=== PATIENT | female | born 1960 | race Caucasian/White ===

== ENCOUNTER → 2020-04-29 15:58 | Outpatient (CLI) | payer OTHER, SELFPAY ==
[2020-04-29 17:39] LABS: Alanine Aminotransferase 19 IU/L (<35); Albumin 4.3 g/dL (3.5-5.0); Albumin Globulin Ratio 1.3 (1.0-2.8); Alkaline Phosphatase 62 U/L (38-126); Aspartate Aminotransferase 25 IU/L (14-36); BUN Creatinine Ratio 24.1 (6-22); Bilirubin Total 0.8 mg/dL (0.2-1.3); Blood Urea Nitrogen 20 mg/dL (7-17); Calcium 9.3 mg/dL (8.4-10.2); Carbon Dioxide 29 mmol/L (22-32); Chloride 104 mmol/L (98-107); Estimated Glomerular Filt Rate > 60.0 mL/min (>60); Globulin 3.3 g/dL (1.7-4.1); Glucose 94 mg/dL (70-100); HEMOLYSIS < 15 (0-50); Lipase 107 U/L (23-300); Sodium 140 mmol/L (137-145); Total Protein 7.6 g/dL (6.3-8.2)
[2020-04-29 17:40] LABS: Add Manual Diff / Slide Review NO; Basophils Absolute Auto 100 /uL (0-100); Basophils Percent Auto 0.9 % (0-2); Eosinophils Absolute Auto 300 /uL (0-450); Hematocrit 41.6 % (36-46); Lymphocytes Absolute Auto 1500 /uL (1100-4500); Lymphocytes Percent Auto 23.6 % (25-40); Mean Corpuscular HGB Conc 33.6 % (30-36); Mean Corpuscular Hemoglobin 30.1 PG (26-34); Mean Corpuscular Volume 89.8 fL (80-100); Monocytes Absolute Auto 500 /uL (0-900); Monocytes Percent Auto 7.3 % (3-14); Neutrophils Absolute Auto 4100 /uL (1500-7000); Neutrophils Percent Auto 63.2 % (50-75); Platelet Count 271 X10^3/uL (150-400); Red Blood Cell Count 4.64 X10^6/uL (4.0-5.2); Red Cell Distribution Width 13.8 % (11.6-14.8); White Blood Cell Count 6.5 X10^3/uL (4.5-11.0)
[2020-04-29 18:10] LABS: Hemoglobin A1C% w Est Avg Glu 5.7 % (4.0-6.0)
[2020-04-29 18:17] LABS: TSH w/ Reflex to FT4 1.62 uIU/mL (0.47-4.68)
== END ==
PROVIDERS: PCP Family Medicine; Referring Provider Family Medicine; Visit Provider Family Medicine
DX: K31.9 Disease of stomach and duodenum, unspecified (principal); R10.13 Epigastric pain
CPT/HCPCS: 36415; 80053; 83036; 83690; 84443; 85025

== ENCOUNTER 2020-07-27 22:22 | Emergency (ER) | payer OTHER, SELFPAY ==
[2020-07-27 22:30] VITALS: BP 135/93; PULSE 91; RESP 20; O2SAT 98
--- NOTE | 2020-07-27 22:33 | DI.RAD.S_ITS ---
PROCEDURE: XR CHEST 1V INDICATIONS: chest pain TECHNIQUE: One view of the chest was acquired. COMPARISON: None. FINDINGS: Surgical changes and devices: None. Lungs and pleura: Lungs are clear. No pleural effusions or pneumothorax. Mediastinum: Mediastinal contours appear normal. Heart size is normal. Bones and chest wall: No suspicious bony lesions. Overlying soft tissues appear unremarkable. IMPRESSION: No acute disease. Dictated by: Efrain Rosenthal M.D. on 07/28/2020 at 8:24 Approved by: Efrain oRsenthal M.D. on 07/28/2020 at 8:25
[2020-07-27 22:35] VITALS: TEMP 36.5
[2020-07-27 22:36] VITALS: BP 141/97; PULSE 91; RESP 24; O2SAT 99
[2020-07-27 22:48] LABS: Add Manual Diff / Slide Review NO; Basophils Absolute Auto 200 /uL (0-100); Basophils Percent Auto 2.3 % (0-2); Eosinophils Absolute Auto 400 /uL (0-450); Eosinophils Percent Auto 4.4 % (2-4); Hematocrit 40.9 % (36-46); Hemoglobin 13.5 g/dL (12.0-16.0); Lymphocytes Absolute Auto 2000 /uL (1100-4500); Mean Corpuscular HGB Conc 33.1 % (30-36); Mean Corpuscular Hemoglobin 30.1 PG (26-34); Mean Corpuscular Volume 90.9 fL (80-100); Monocytes Absolute Auto 700 /uL (0-900); Monocytes Percent Auto 8.2 % (3-14); Neutrophils Absolute Auto 5700 /uL (1500-7000); Neutrophils Percent Auto 63.1 % (50-75); Platelet Count 293 X10^3/uL (150-400); Red Blood Cell Count 4.51 X10^6/uL (4.0-5.2); Red Cell Distribution Width 14.1 % (11.6-14.8); White Blood Cell Count 9.1 X10^3/uL (4.5-11.0)
[2020-07-27 22:54] LABS: Prothrombin Time 11.2 SECONDS (10.1-12.7)
[2020-07-27 22:56] LABS: PTT Partial Thromboplastin Tim 32 SECONDS (26.4-36.2)
[2020-07-27 22:59] LABS: Alanine Aminotransferase 19 IU/L (<35); Albumin 4.2 g/dL (3.5-5.0); Albumin Globulin Ratio 1.4 (1.0-2.8); Alkaline Phosphatase 66 U/L (38-126); Aspartate Aminotransferase 23 IU/L (14-36); Bilirubin Total 0.2 mg/dL (0.2-1.3); Blood Urea Nitrogen 30 mg/dL (7-17); Calcium 9.4 mg/dL (8.4-10.2); Carbon Dioxide 29 mmol/L (22-32); Chloride 108 mmol/L (98-107); Creatine Kinase 130 U/L (30-135); Estimated Glomerular Filt Rate 52.5 mL/min (>60); Globulin 3.1 g/dL (1.7-4.1); Glucose 83 mg/dL (70-100); HEMOLYSIS < 15 (0-50); Lipase 133 U/L (23-300); Potassium 3.8 mmol/L (3.4-5.1); Sodium 142 mmol/L (137-145); Total Protein 7.3 g/dL (6.3-8.2)
[2020-07-27 23:10] LABS: Troponin I < 0.012 ng/mL (0.01-0.034)
[2020-07-27 23:14] LABS: CKMB % Relative Index 1.1 % (1.5-5.0); Creatine Kinase MB 1.48 ng/mL (<2.37)
--- NOTE | 2020-07-27 23:15 | ED.CHESTPAIN ---
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 Apparently symptoms began in December or January of this year with increased overall tightness through her chest. She had 20 minutes episode in her barn where she became acutely dyspneic and describes it as in asthmatic attack (with no prior history of asthma or reactive airway disease). She describes 6 of her senior living cats all dying at about the same time that she began having this chest tightness as well as increasing fatigue in general malaise. She was concerned and self treated with a course of ciprofloxacin and reported feeling better for approximately 2 weeks. When the chest tightness general malaise and fatigue returned she spoke to a physician via telemedicine who hypoxia size that she may have some type of pulmonary chlamydial infection and prescribed a course of oral azithromycin. She describes little change with the azithromycin. She was seen for new visit with a primary care provider in April and discussed PTSD, general anxiety disorder but she feels did not adequately addressed her pulmonary concerns. She comes in on the late Tuesday evening knowing that the emergency room has been busy and figuring this would be a slow time and be less wait time for her to continue her workup. There was no acute exacerbation or change to her overall symptoms today. She complains of intermittent headaches, no fevers, intermittent mild cough that is nonproductive, no abdominal pain, vomiting or diarrhea. She notes that during the summer when all of the fleas were hatching she had a flea bite that got infected on her leg, there are no other skin complaints or concerns at this time. She is concerned overall that she may have some sort of zoonotic transmissible disease and is concerned that the 6 cats and the flea bites may somehow be involved with all of her symptoms. She does have any focal neurologic complaints aside from the general fatigued. Related Data Previous Rx's Medication Instructions Recorded meloxicam 15 mg tablet 15 mg PO DAILY #90 tab 05/02/20 paroxetine HCl 30 mg tablet 30 mg PO DAILY #90 tab 05/02/20 alprazolam 0.5 mg tablet 0.5 mg PO DAILY PRN #20 tab 05/06/20 zolpidem 10 mg tablet 10 mg PO BEDTIME PRN #30 tab 05/06/20 Allergies Allergy/AdvReac Type Severity Reaction Status Date / Time acetaminophen [From Percocet] AdvReac Mild N/V Verified 04/29/20 15:06 hydrocodone [From Vicodin] AdvReac Mild N/V Verified 04/29/20 15:06 oxycodone [From Percocet] AdvReac Mild N/V Verified 04/29/20 15:06 Review of Systems Review of Systems Narrative: Remainder of review of systems including constitutional, ENT, cardiovascular, respiratory, GI, , musculoskeletal, skin, neurologic and psychiatric systems reviewed and are unremarkable except as noted in HPI. Patient History Medical History Dyspepsia and disorder of function of stomach Generalized anxiety disorder Osteoarthritis Panic attacks Preventive measure PTSD (post-traumatic stress disorder) Social History Smoking Status: Former smoker Tobacco: How many years used: 33 quit status: has quit before alcohol intake: never substance use type: does not use Smoking Status: Former smoker Exam Narrative Exam Narrative: General: Healthy appearing, in no acute distress. Able to give a complete and coherent history. Well-nourished well-developed HEENT: Moist mucous membranes, normal sclera with reactive pupils, Neck: No JVD, supple Respiratory: Lungs are clear to auscultation, no wheezing no rales no rhonchi. Full and symmetrical air movement Cardiac: Regular rate and rhythm no murmurs no bruits Abdomen: Soft, nontender, good bowel tones, no flank pain Skin: Warm and dry, no rashes Neurologic: Grossly neurologically intact with no obvious asymmetries or abnormalities Extremities: No trauma, well perfused Psych: Cooperative, appropriate insight and affect Initial Vital Signs Initial Vital Signs: Vital Signs Pulse Rate 91 H 07/27/20 22:30 Respiratory Rate 20 07/27/20 22:30 Blood Pressure 135/93 H 07/27/20 22:30 Pulse Oximetry 98 07/27/20 22:30 Course Orders Ordered: ED Orders 07/27/20 22:33 XR chest 1V Stat EKG-12 Lead Stat 07/27/20 22:34 Complete Blood Count AUTO DIFF Stat Comprehensive Metabolic Panel Stat Lipase Stat Partial Thromboplastin Time Stat Prothrombin Time INR Stat Troponin & CK Cardiac Panel Stat Discontinued Medications Albuterol (Albuterol Hfa Prepack) 1 box MISC SEEINSTR ONE Stop: 07/27/20 23:32 Last Admin: 07/27/20 23:41 Dose: 1 box Documented by: PAULA Vital Signs Vital signs: Vital Signs - 8 hr 07/27/20 22:30 07/27/20 22:35 07/27/20 22:36 Temperature 97.7 F Pulse Rate 91 H 91 H Respiratory Rate 20 24 Blood Pressure 135/93 H 141/97 H Pulse Oximetry 98 99 07/27/20 23:41 07/27/20 23:58 Temperature Pulse Rate 82 80 Respiratory Rate 15 16 Blood Pressure 116/71 Pulse Oximetry 96 96 MDM - Chest Pain Medical Records Data Attestation: I reviewed the patient's medical records. Lab Data Attestation: I reviewed the patient's lab results. Result diagrams: 07/27/20 22:34 07/27/20 22:34 Labs: Lab Results 07/27/20 07/27/20 07/27/20 Range/Units 22:34 22:34 22:34 WBC 9.1 (4.5-11.0) X10^3/uL RBC 4.51 (4.0-5.2) X10^6/uL Hgb 13.5 (12.0-16.0) g/dL Hct 40.9 (36-46) % MCV 90.9 (80-100) fL MCH 30.1 (26-34) PG MCHC 33.1 (30-36) % RDW 14.1 (11.6-14.8) % Plt Count 293 (150-400) X10^3/uL Neut % (Auto) 63.1 (50-75) % Lymph % (Auto) 22.0 L (25-40) % [place] % (Auto) 8.2 (3-14) % Eos % (Auto) 4.4 H (2-4) % Baso % (Auto) 2.3 H (0-2) % Neut # (Auto) 5700 (7386-8010) /uL Lymph # (Auto) 2000 (8183-9449) /uL Florence # (Auto) 700 (0-900) /uL Eos # (Auto) 400 (0-450) /uL Baso # (Auto) 200 H (0-100) /uL PT 11.2 (10.1-12.7) SECONDS INR 1.0 (0.9-1.3) APTT 32 (26.4-36.2) SECONDS Sodium 142 (137-145) mmol/L Potassium 3.8 (3.4-5.1) mmol/L Chloride 108 H (98-107) mmol/L Carbon Dioxide 29 (22-32) mmol/L BUN 30 H (7-17) mg/dL Creatinine 1.07 H (0.52-1.04) mg/dL Estimated GFR 52.5 L (>60) mL/min BUN/Creatinine Ratio 28.0 H (6-22) Glucose 83 (70-100) mg/dL Calcium 9.4 (8.4-10.2) mg/dL Total Bilirubin 0.2 (0.2-1.3) mg/dL AST 23 (14-36) IU/L ALT 19 (<35) IU/L Alkaline Phosphatase 66 (38-126) U/L Total Creatine Kinase 130 (30-135) U/L CK-MB (CK-2) 1.48 (<2.37) ng/mL CK-MB (CK-2) Rel Index 1.1 L (1.5-5.0) % Troponin I < 0.012 (0.01-0.034) ng/mL Total Protein 7.3 (6.3-8.2) g/dL Albumin 4.2 (3.5-5.0) g/dL Globulin 3.1 (1.7-4.1) g/dL Albumin/Globulin Ratio 1.4 (1.0-2.8) Lipase 133 (23-300) U/L Imaging Data Chest x-ray: Attestation: I personally reviewed and interpreted this imaging study as follows: My Impression: Entirely benign. Radiologist's Impression: No acute disease in the chest Lucas Pelayo MD ECG Data Attestation: I personally reviewed and interpreted this ECG as follows: Interpretation: Sinus rhythm at a rate of 87 Normal intervals, normal axis No acute ischemic changes MDM Narrative Medical decision making narrative: Labs are unremarkable as is chest x-ray and EKG. 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 She is wondering what additional testing can be done for that. I am wondering if she may simply be developing mild airway disease. Have asked that she return to her primary care physician I believe pulmonary function testing to sort through some of her questions may be helpful and she certainly is quite interested in a children's tutor nursery consult to see if there is evidence of any other type of chronic pulmonary infection. At this point certainly nothing that is life-threatening, no evidence of obvious bacterial infection or pneumonia, no coronary syndrome or other acute life-threatening issues. Discharge Plan Departure Patient Disposition: Home Clinical Impression: Dyspnea Qualifiers: Dyspnea type: unspecified Qualified Code(s): R06.00 - Dyspnea, unspecified Instructions: DI for Asthma -- Adult Activity Restrictions/Additional Instructions: Thank you for coming in today I am pleased that I did not find any acute like threatening issues or obvious infections. I am wondering if you are developing a bit of reactive airway issues to explain the overall tightness that you have been experiencing. Please use the spacer and albuterol inhaler with 2 puffs the next time you developed this chest tightness and see if it makes a difference for you. Please schedule appointment with Dr. Pacheco to talk about the chest tightness, consider pulmonary function testing and talk about need for referral to children's tutor nursery. Prescriptions: No Action meloxicam 15 mg tablet 15 mg PO DAILY Qty: 90 RF: 1 paroxetine HCl 30 mg tablet 30 mg PO DAILY Qty: 90 RF: 1 alprazolam 0.5 mg tablet 0.5 mg PO DAILY PRN (Reason: anxiety) Qty: 20 RF: 0 zolpidem 10 mg tablet 10 mg PO BEDTIME PRN (Reason: sleep) Qty: 30 RF: 0 Referrals: Osmar Pacheco, [Primary Care Provider] -
[2020-07-27 23:41] VITALS: PULSE 82; RESP 15; O2SAT 96
[2020-07-27] MEDS: ALBUTEROL HFA PREPACK 1 BOX MISC (23:41)
[2020-07-27 23:58] VITALS: BP 116/71; PULSE 80; RESP 16; O2SAT 96
== END 2020-07-27 23:58 | disposition home or self-care (01) ==
PROVIDERS: Emergency Provider Emergency Medicine; PCP Family Medicine
DX: R06.00 Dyspnea, unspecified (principal); R07.9 Chest pain, unspecified; R51.9 Headache, unspecified; R05 Cough
CPT/HCPCS: 36415; 71045; 80053; 82550; 82553; 83690; 84484; 85025; 85610; 85730; 93005; 94640; 99283; 99284

== ENCOUNTER → 2021-08-04 14:45 | Outpatient (CLI) | payer OTHER, SELFPAY ==
--- NOTE | 2021-08-04 14:46 | DI.MG.S_ITS ---
BILATERAL DIGITAL SCREENING MAMMOGRAM 3D/2D WITH CAD: 08/04/2021 CLINICAL: Baseline exam. Routine screening. No prior exams were available for comparison. There are scattered fibroglandular elements in both breasts. Current study was also evaluated with a Computer Aided Detection (CAD) system. No significant masses, calcifications, or other findings are seen in either breast. IMPRESSION: NEGATIVE There is no mammographic evidence of malignancy. A 1 year screening mammogram is recommended. This exam was interpreted at Station ID: [id number]. NOTE: For mammograms, a report in lay terms will be sent to the patient. Approximately 15% of breast malignancies will not be visualized mammographically. In the management of a palpable breast mass, a negative mammogram must not discourage biopsy of a clinically suspicious lesion. Electronically Signed By: Dawit holden/anita:08/04/2021 16:25:37 letter sent: Normal Exam ACR BI-RADS Category 1: Negative [id number]
== END ==
PROVIDERS: PCP Family Medicine; Referring Provider Family Medicine; Visit Provider Family Medicine
DX: Z12.31 Encounter for screening mammogram for malignant neoplasm of breast (principal)
CPT/HCPCS: 77063; 77067

== ENCOUNTER → 2021-11-03 13:21 | Outpatient (CLI) | payer OTHER, SELFPAY ==
[2021-11-03 16:36] LABS: Alanine Aminotransferase 18 IU/L (<35); Albumin 4.1 g/dL (3.5-5.0); Albumin Globulin Ratio 1.6 (1.0-2.8); Alkaline Phosphatase 59 U/L (38-126); Aspartate Aminotransferase 23 IU/L (14-36); BUN Creatinine Ratio 22.3 (6-22); Bilirubin Total 0.6 mg/dL (0.2-1.3); Blood Urea Nitrogen 21 mg/dL (7-17); Calcium 9.3 mg/dL (8.4-10.2); Carbon Dioxide 26 mmol/L (22-32); Chloride 104 mmol/L (98-107); Estimated Glomerular Filt Rate > 60 mL/min (>60); Globulin 2.6 g/dL (1.7-4.1); Glucose 93 mg/dL (80-110); HEMOLYSIS < 15 (0-50); Potassium 4.2 mmol/L (3.4-5.1); Sodium 141 mmol/L (137-145); Total Protein 6.7 g/dL (6.3-8.2)
== END ==
PROVIDERS: PCP Family Medicine; Referring Provider Family Medicine; Visit Provider Family Medicine
DX: I10 Essential (primary) hypertension (principal)
CPT/HCPCS: 36415; 80053

== ENCOUNTER → 2022-12-07 15:21 | Outpatient (CLI) | payer OTHER, SELFPAY ==
[2022-12-07 15:40] LABS: Appearance Urine UA CLEAR; Bilirubin Urine UA NEGATIVE (NEGATIVE); Color Urine UA YELLOW; Glucose Urine UA NEGATIVE (Negative); Ketones Urine UA NEGATIVE (NEGATIVE); Leukocyte Esterase Urine UA NEGATIVE (NEGATIVE); Nitrite Urine UA NEGATIVE (Negative); Occult Blood Urine UA TRACE-INTACT (Negative); Protein Urine UA NEGATIVE (Negative); Specific Gravity Urine UA >=1.030 (1.000-1.035); Urobilinogen Urine UA 0.2 E.U./dL (0.2)
[2022-12-07 15:43] LABS: pH Urine UA 5.5 (4.5-8.0)
[2022-12-07 15:50] LABS: Bacteria Urine Occasional (0-1); Culture Indicated Urine Cult Not Indicated; RBC Urine 1-5/HPF (0-5/HPF); Squamous Epithelial Cell Urine 1-5 /HPF (0-5/HPF); WBC Urine 0-1/HPF (0-5/HPF)
[2022-12-07 16:03] LABS: Add Manual Diff / Slide Review NO; Basophils Absolute Auto 100 /uL (0-100); Eosinophils Absolute Auto 400 /uL (0-450); Eosinophils Percent Auto 4.2 % (2-4); Hematocrit 41.3 % (36-46); Hemoglobin 13.9 g/dL (12.0-16.0); Lymphocytes Absolute Auto 2100 /uL (1100-4500); Lymphocytes Percent Auto 24.9 % (25-40); Mean Corpuscular HGB Conc 33.6 % (30-36); Mean Corpuscular Hemoglobin 30.4 PG (26-34); Mean Corpuscular Volume 90.7 fL (80-100); Monocytes Absolute Auto 600 /uL (0-900); Monocytes Percent Auto 6.9 % (3-14); Neutrophils Absolute Auto 5400 /uL (1500-7000); Platelet Count 313 X10^3/uL (150-400); Red Blood Cell Count 4.56 X10^6/uL (4.0-5.2); Red Cell Distribution Width 13.7 % (11.6-14.8); White Blood Cell Count 8.6 X10^3/uL (4.5-11.0)
[2022-12-07 16:18] LABS: Alanine Aminotransferase 22 IU/L (<35); Albumin 4.2 g/dL (3.5-5.0); Albumin Globulin Ratio 1.5 (1.0-2.8); Alkaline Phosphatase 66 U/L (38-126); Aspartate Aminotransferase 22 IU/L (14-36); BUN Creatinine Ratio 26.4 (6-22); Bilirubin Total 0.4 mg/dL (0.2-1.3); Blood Urea Nitrogen 23 mg/dL (7-17); Calcium 9.3 mg/dL (8.4-10.2); Carbon Dioxide 26 mmol/L (22-32); Chloride 103 mmol/L (98-107); Estimated Glomerular Filt Rate > 60 mL/min (>60); Globulin 2.8 g/dL (1.7-4.1); Glucose 110 mg/dL (80-110); HEMOLYSIS < 15 (0-50); Potassium 3.9 mmol/L (3.4-5.1); Sodium 138 mmol/L (137-145)
== END ==
PROVIDERS: PCP Family Medicine; Referring Provider Family Medicine; Visit Provider Family Medicine
DX: N23 Unspecified renal colic (principal); R10.9 Unspecified abdominal pain
CPT/HCPCS: 36415; 80053; 81001; 85025

== ENCOUNTER → 2022-12-14 07:21 | Outpatient (CLI) | payer OTHER, SELFPAY ==
--- NOTE | 2022-12-14 07:23 | DI.US.S_ITS ---
PROCEDURE: US RENAL COMPLETE INDICATIONS: RIGHT FLANK PAIN TECHNIQUE: Real-time scanning was performed of the kidneys and bladder, with image documentation. COMPARISON: None. FINDINGS: Kidneys: Kidneys are normal in size. Right kidney measures 11.0 cm long; left kidney measures 9.6 cm long. Right renal cortical thickness is 1.6 cm; left renal cortical thickness is 1.3 cm. Renal cortical echotexture is normal. Slight prominence of upper calyx of right kidney is seen. No abnormal distension of renal pelvis. No left-sided hydronephrosis or nephrolithiasis. No suspicious solid mass lesions. Bladder: Pre-void bladder volume is 115 mL. Post-void residual is 0 mL. Pre-void images demonstrate no intraluminal masses or stones. On pre-void images, bilateral ureteral jets are noted with color Doppler interrogation. (Of note, ureteral jets may not be detectable in up to 25% of cases due to insufficient differences in specific gravity between ureteral and bladder urine). Miscellaneous: No free pelvic fluid. IMPRESSION: 1. Slight prominence of upper calyx of right renal collecting system and may represent a peripelvic cyst. No definite hydronephrosis or nephrolithiasis. No solid appearing renal lesion. Clinical and sonographic follow-up is recommended. 2. Normal appearing urinary bladder. Dictated by: René Gomez M.D. on 12/14/2022 at 10:22 Approved by: René Gomez M.D. on 12/14/2022 at 10:27
== END ==
PROVIDERS: PCP Family Medicine; Referring Provider Family Medicine; Visit Provider Family Medicine
DX: N23 Unspecified renal colic (principal); R10.9 Unspecified abdominal pain
CPT/HCPCS: 76770

== ENCOUNTER → 2023-03-17 12:59 | Outpatient (CLI) | payer OTHER, SELFPAY ==
--- NOTE | 2023-03-17 12:59 | DI.CT.S_ITS ---
PROCEDURE: CT IVP A/P W/WO INDICATIONS: Microscopic hematuria and tobacco exposure, right flank pain TECHNIQUE: Optional 5 mm thick noncontrast images acquired from the diaphragm to the symphysis pubis. After the administration of intravenous contrast, 5 mm thick images acquired from the diaphragm to the symphysis pubis after a 10-minute delay. 2 mm thick coronal and sagittal reformats were then performed of the kidneys and ureters. For radiation dose reduction, the following was used: automated exposure control, adjustment of mA and/or kV according to patient size. COMPARISON: [facility], , RENAL COMPLETE, 12/14/2022, 7:43. FINDINGS: Image quality: Excellent. Lung bases: Lingular atelectasis. Heart size is normal. Small hiatal hernia. Urinary system: Both kidneys are normal in size, without hydronephrosis or nephrolithiasis on pre-contrast images. No perinephric fat stranding. There is normal bilateral renal enhancement. Renal calyces appear normal in morphology when filled with contrast. Opacified portions of both ureters demonstrate normal caliber. Bladder wall thickness is normal. No calcified bladder stones. Other solid organs: Liver is normal in size and enhancement. Gallbladder is contracted. No gallstones. Biliary system is non dilated. Pancreas enhances normally. Spleen is normal in size and enhancement. No adrenal nodules. Peritoneum and bowel: Bowel loops demonstrate normal wall thickness and caliber. No free fluid or air. There are numerous colonic diverticula. There is mild colonic wall thickening and pericolonic stranding in sigmoid colon consistent with acute diverticulitis. Question mild thickening of rectum. Nodes and vessels: No retroperitoneal or mesenteric adenopathy by size criteria. Aorta and inferior vena cava are normal in size. Abdominal wall: No ventral hernias. Pelvis: No pathologic free pelvic fluid. No inguinal hernias or adenopathy. Bones: No suspicious bony lesions. No vertebral body compression fractures. IMPRESSION: 1. A cause for microscopic hematuria is not identified. No renal or uroepithelial masses. No urinary stones or hydronephrosis. 2. Diverticulosis. There is mild acute sigmoid diverticulitis. 3. Question mild thickening of rectum. The finding could be secondary to artifact but an infectious/inflammatory etiology or neoplasm is not excluded. Consider colonoscopy if clinically indicated. 4. Small hiatal hernia. Dictated by: Tatiana Montano M.D. on 03/17/2023 at 17:05 Approved by: Tatiana Montano M.D. on 03/17/2023 at 20:29
== END ==
PROVIDERS: PCP Family Medicine; Referring Provider Urology; Visit Provider Urology
DX: R31.21 Asymptomatic microscopic hematuria (principal); K57.32 Diverticulitis of large intestine without perforation or abscess without bleeding; R10.9 Unspecified abdominal pain; K44.9 Diaphragmatic hernia without obstruction or gangrene; Z87.891 Personal history of nicotine dependence; Z77.22 Contact with and (suspected) exposure to environmental tobacco smoke (acute) (chronic)
CPT/HCPCS: 74178; Q9967

== ENCOUNTER → 2023-10-24 18:37 | Outpatient (CLI) | payer OTHER, SELFPAY ==
--- NOTE | 2023-10-24 18:38 | DI.RAD.S_ITS ---
PROCEDURE: XR KNEE LT 3V INDICATIONS: Left knee pain TECHNIQUE: 3 views of the knee were acquired. COMPARISON: None. FINDINGS: Bones: No fractures or dislocations. Mild tricompartmental joint space narrowing and juxta-articular osteophytosis. No suspicious bony lesions. Soft tissues: No joint effusion. No suspicious soft tissue calcifications. IMPRESSION: 1. No acute bony abnormality. Small joint effusion. 2. Mild tricompartmental osteoarthritis. Dictated by: Lea Hernandez M.D. on 10/25/2023 at 10:53 Approved by: Lea Hernandez M.D. on 10/25/2023 at 10:54
== END ==
PROVIDERS: PCP Family Medicine; Referring Provider Physician Assistant; Visit Provider Physician Assistant
DX: M16.12 Unilateral primary osteoarthritis, left hip (principal); M25.562 Pain in left knee; M25.462 Effusion, left knee
CPT/HCPCS: 73562

== ENCOUNTER → 2023-12-01 15:43 | Outpatient (CLI) | payer OTHER, SELFPAY ==
--- NOTE | 2023-12-01 15:44 | DI.MRI.S_ITS ---
PROCEDURE: MR KNEE LT WO CON INDICATIONS: Acute left knee pain TECHNIQUE: Noncontrast sagittal PD fast spin echo and T2 fast spin echo with fat saturation, sagittal 3-D FLASH with fat saturation; coronal T1 spin echo and PD fast spin echo with fat saturation, and axial PD fast spin echo with fat saturation through the knee. COMPARISON: [facility], CR, XR KNEE LT 3V, 10/24/2023, 18:42. FINDINGS: Image quality: Excellent. Menisci: There is medial meniscal extrusion. There is complex tear of the posterior horn extending to the posterior root of the medial meniscus. Horizontal tear is seen of the body of the medial meniscus. The lateral meniscus demonstrates normal morphology and internal signal. The meniscal root ligaments appear intact. Cruciate ligaments: The anterior and posterior cruciate ligaments appear intact. Medial structures: The medial collateral ligament appears intact. The semimembranosus tendon insertions and meniscocapsular junction appear intact. Visualized portions of the pes anserinus tendons appear normal. No abnormal bursal fluid. Lateral structures: The lateral collateral ligament, long and short heads of the biceps femoris tendon appear intact. The popliteus tendon appears normal. Iliotibial band appears normal. Anterior structures: The quadriceps and patellar tendons appear intact. Patellar alignment is normal. No femoral trochlear dysplasia or ventral trochlear prominence. No edema in the infrapatellar fat pad. Bones and cartilage: Question nondisplaced osteochondral lesion in the medial tibial plateau. There is diffuse marrow edema in the medial femoral condyle. In addition, there is a small osteochondral lesion in the lateral femoral condyle. condyle. No unstable osteochondral fragment. Severe chondral malacia patella. There is also severe cartilage loss in the medial femorotibial compartment with denuded weight-bearing articular surface. Mild to moderate cartilage thinning and fibrillation are seen in the lateral femorotibial compartment. Joint space: There is small knee joint effusion. There is a moderate sized complex Pimentel's cyst. There are intra-articular bodies in the complex Pimentel's cyst. The largest measures 0.7 x 1.6 cm cm. Mild thickening of synovial plicae. IMPRESSION: 1. Medial meniscal extrusion and meniscal tear as described. 2. Nondisplaced osteochondral lesion in medial tibial plateau and left femoral condyle. 3. Severe cartilage loss in the medial femorotibial compartment and patellofemoral compartment. 4. Small knee joint effusion. 5. A moderate-sized complex Pimentel's cyst with a 0.7 x 1.6 cm intra-articular body. Dictated by: Tatiana Montano M.D. on 12/02/2023 at 13:51 Approved by: Tatiana Montano M.D. on 12/02/2023 at 14:14
== END ==
PROVIDERS: PCP Nurse Practitioner; Referring Provider Nurse Practitioner; Visit Provider Nurse Practitioner
DX: S83.232A Complex tear of medial meniscus, current injury, left knee, initial encounter (principal); M22.42 Chondromalacia patellae, left knee; M25.462 Effusion, left knee; M71.22 Synovial cyst of popliteal space [Baker], left knee; M89.9 Disorder of bone, unspecified; M25.562 Pain in left knee; R29.898 Other symptoms and signs involving the musculoskeletal system
CPT/HCPCS: 73721

== ENCOUNTER → 2023-12-05 14:08 | Outpatient (CLI) | payer OTHER, SELFPAY ==
--- NOTE | 2023-12-05 14:09 | DI.MG.S_ITS ---
BILATERAL DIGITAL SCREENING MAMMOGRAM 3D/2D WITH CAD: 12/05/2023 CLINICAL: Routine screening. Comparison is made to exam dated: 08/04/2021 mammogram - [facility]. There are scattered areas of fibroglandular density in both breasts (category b / 25%-50% glandular tissue). Current study was also evaluated with a Computer Aided Detection (CAD) system. No significant masses, calcifications, or other findings are seen in either breast. There has been no significant interval change. IMPRESSION: NEGATIVE There is no mammographic evidence of malignancy. A 1 year screening mammogram is recommended. Based on the Tyrer Cuzick model (a risk assessment model) the patient's lifetime risk is 5.3% and her 10 year risk is 2.3%. According to the ACR, ACS, and NCCN guidelines, an annual breast MRI exam along with mammogram is recommended if the patient's lifetime risk is 20% or greater. This exam was interpreted at Station ID: [id number]. NOTE: For mammograms, a report in lay terms will be sent to the patient. Approximately 15% of breast malignancies will not be visualized mammographically. In the management of a palpable breast mass, a negative mammogram must not discourage biopsy of a clinically suspicious lesion. Electronically Signed By: Joseph whitley/anita:12/06/2023 07:40:57 letter sent: Normal Exam ACR BI-RADS Category 1: Negative 3341F
== END ==
PROVIDERS: PCP Nurse Practitioner; Referring Provider Nurse Practitioner; Visit Provider Nurse Practitioner
DX: Z12.31 Encounter for screening mammogram for malignant neoplasm of breast (principal); R92.323 Mammographic fibroglandular density, bilateral breasts
CPT/HCPCS: 77063; 77067

== ENCOUNTER 2024-06-29 12:44 | Emergency (ER) | payer OTHER, SELFPAY ==
[2024-06-29] VITALS (10 sets, daily range): BP systolic 119–140; BP diastolic 62–78; PULSE 66–86; RESP 12–25; TEMP 37; O2SAT 93–100; BMI 29.5
--- NOTE | 2024-06-29 12:56 | DI.RAD.S_ITS ---
PROCEDURE: XR ANKLE RT MIN 3V INDICATIONS: trauma TECHNIQUE: 3 views of the ankle were acquired. COMPARISON: None. FINDINGS: Bones: Oblique fracture extending from the posterior to anterior portion of the calcaneus. This is likely intra-articular. Soft tissues: Large tibiotalar joint effusion. Achilles tendon appears normal. IMPRESSION: Intra-articular fracture of the calcaneus. Consider CT for further evaluation. Orthopedic consultation is recommended. Dictated by: Monty Fontanez M.D. on 06/29/2024 at 13:26 Approved by: Monty Fontanez M.D. on 06/29/2024 at 13:27
--- NOTE | 2024-06-29 12:56 | DI.CT.S_ITS ---
PROCEDURE: CT TRAUMA CHEST ABDOMEN PELVIS INDICATIONS: fell off ladder TECHNIQUE: MDCT axial chest images were obtained with IV contrast in the arterial phase. Maximum intensity projections and multiplanar reformats were obtained. MDCT axial abdomen and pelvis images were obtained with IV contrast in the portal venous phase. Multiplanar reformats were obtained. Optional delayed phase scanning may also be obtained Advanced techniques were used to lower patient radiation exposure. COMPARISON:None. FINDINGS Image Quality: Diagnostic. Chest: Lungs and pleura: No pneumothorax or hemothorax. No pulmonary contusions or lacerations. No solid pulmonary nodule requiring follow-up. Vascular: No dissection or pseudoaneurysm. No incidental central pulmonary embolism. No hemopericardium. Mediastinum: No mediastinum hematoma. No suspicious mass or lymph nodes. No actionable thyroid nodules. Chest wall: Intact clavicles, scapula, and glenohumeral joint. No displaced rib fractures. Thoracic spine: No acute fracture or traumatic subluxation. ABDOMEN and PELVIS: Liver: No laceration or capsular hematoma. Hepatic cysts are present. Gallbladder: Unremarkable. Biliary system: Non-dilated. Pancreas: Unremarkable. Spleen: No laceration or capsular hematoma. Adrenals: No suspicious nodules. Kidneys: No contrast extravasation or hydronephrosis. No solid masses. Vessels and lymph nodes: No pathology lymph nodes by size criteria. No dissection or aneurysm. No retroperitoneal hematoma. Bowel and peritoneum: No suspicious region of mesenteric hemorrhage or hemoperitoneum. No bowel obstruction. Pelvis: Unremarkable bladder. Pelvic ring and femurs: No pelvic ring disruption. No hip fractures. Lumbar spine: There is fracture through the superior endplate of the L4 vertebral body, likely extending to the posterior vertebral body. Abdominal wall: No drainable fluid collection or hematoma. IMPRESSION: Incomplete burst fracture the L4 vertebral body. AO classification -A3. Dictated by: Monty Fontanez M.D. on 06/29/2024 at 13:53 Approved by: Monty Fontanez M.D. on 06/29/2024 at 14:01
--- NOTE | 2024-06-29 12:56 | EKG_ITS ---
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
--- NOTE | 2024-06-29 12:57 | DI.CT.S_ITS ---
PROCEDURE: CT HEAD/BRAIN WO CON INDICATIONS: Trauma TECHNIQUE: Noncontrast 4.5 mm thick angled axial sections acquired from the foramen magnum to the vertex, with coronal and sagittal reformats. For radiation dose reduction, the following was used: automated exposure control, adjustment of mA and/or kV according to patient size. COMPARISON: None. FINDINGS: Image quality: Diagnostic. CSF spaces: Basal cisterns are patent. No extra-axial fluid collections. Ventricles are normal in size and shape. Brain: No midline shift. No intracranial masses or hemorrhage. Cunningham-white matter interface is normal. Skull and face: Calvarium and visualized facial bones are intact, without suspicious lesions. Sinuses: Visualized sinuses and mastoids are clear. IMPRESSION: No acute intracranial pathology. Dictated by: Monty Fontanez M.D. on 06/29/2024 at 13:50 Approved by: Monty Fontanez M.D. on 06/29/2024 at 13:51
--- NOTE | 2024-06-29 12:57 | DI.CT.S_ITS ---
PROCEDURE: CT CERVICAL SPINE WO CON INDICATIONS: Trauma TECHNIQUE: Noncontrast 3 mm thick sections acquired from the skull base to the T4 level. Sagittal and coronal reformats were then constructed. For radiation dose reduction, the following was used: automated exposure control, adjustment of mA and/or kV according to patient size. COMPARISON: None. FINDINGS: Image quality: Excellent. Bones: No fractures or dislocations. Visualized superior ribs are intact. Endplate osteophytes at C5-6 causing [id number] spinal canal narrowing. Soft tissues: Prevertebral soft tissues are normal in thickness. No paravertebral hematomas. No apical pneumothoraces. IMPRESSION: No displaced fracture or traumatic subluxation. Dictated by: Monty Fontanez M.D. on 06/29/2024 at 13:52 Approved by: Monty Fontanez M.D. on 06/29/2024 at 13:53
--- NOTE | 2024-06-29 12:59 | DI.CT.S_ITS ---
PROCEDURE: CT FOOT RIGHT WITHOUT CON INDICATIONS: fell off ladder TECHNIQUE: Noncontrast 1-1.5 mm axial sections acquired from above the tibiotalar joint to the bottom of the calcaneus, with coronal and sagittal reformats. COMPARISON: None. FINDINGS: Image quality: Excellent. Bones: There is an acute comminuted fracture involving weight-bearing portion of calcaneus with up to 6 mm diastasis at fracture site. There are additional medial and laterally displaced fractured calcaneal fragments adjacent to the fracture site. Fracture line is noted extending to superior articulating surfaces adjacent to anterior and posterior facet of subtalar joint. Fracture line is also seen extending to the superior aspect of calcaneocuboid joint. No other fracture or dislocation is noted. No metatarsal stress fracture. No suspicious intraosseous lesion. Osteoarthritic changes are noted throughout right foot. Soft tissues: There is significant soft tissue swelling and edema surrounding calcaneal fracture site. Small to moderate subtalar joint effusion is seen, no gross calcified intra-articular loose bodies. No gross full-thickness Achilles tendon rupture. Mildly thickened plantar fascia is seen. Extensor, flexor and peroneus tendons are grossly intact. No abnormal soft tissue calcifications or discrete soft tissue mass. No drainable fluid collection. IMPRESSION: 1. Acute severely comminuted and displaced calcaneal fracture involving its mid to distal weight-bearing portion as above. 2. Right foot joint osteoarthritis. No other fracture or dislocation. No dislocation. No suspicious bony lesions. 3. Soft tissue swelling and edema surrounding calcaneal fracture site. Small to moderate subtalar joint effusion, no calcified intra-articular loose bodies. No full-thickness tendon rupture. 4. Mildly thickened plantar fascia and well-defined plantar calcaneal enthesophyte which may represent low-grade plantar fasciitis. Dictated by: René Gomez M.D. on 06/29/2024 at 14:08 Approved by: René Gomez M.D. on 06/29/2024 at 14:15
[2024-06-29 13:07] LABS: Add Manual Diff / Slide Review NO; Basophils Absolute Auto 0 /uL (0-100); Basophils Percent Auto 0.5 % (0-2); Eosinophils Absolute Auto 300 /uL (0-450); Eosinophils Percent Auto 2.7 % (2-4); Hematocrit 40.7 % (36-46); Hemoglobin 13.6 g/dL (12.0-16.0); Lymphocytes Absolute Auto 1300 /uL (1100-4500); Lymphocytes Percent Auto 13.5 % (25-40); Mean Corpuscular HGB Conc 33.4 % (30-36); Mean Corpuscular Hemoglobin 30.2 PG (26-34); Mean Corpuscular Volume 90.3 fL (80-100); Monocytes Absolute Auto 600 /uL (0-900); Monocytes Percent Auto 6.2 % (3-14); Neutrophils Absolute Auto 7600 /uL (1500-7000); Neutrophils Percent Auto 77.1 % (50-75); Platelet Count 283 X10^3/uL (150-400); Red Blood Cell Count 4.51 X10^6/uL (4.0-5.2); Red Cell Distribution Width 14.2 % (11.6-14.8); White Blood Cell Count 9.9 X10^3/uL (4.5-11.0)
[2024-06-29] MEDS: OXYCODONE/ACETAMINOPHEN 5/325 TABLET 1 TAB PO ×2 (13:09→16:01)
[2024-06-29] MEDS: ONDANSETRON 4 MG/2 ML INJ IV (13:09)
[2024-06-29 13:12] LABS: Alanine Aminotransferase 20 IU/L (<35); Albumin 4.1 g/dL (3.5-5.0); Albumin Globulin Ratio 1.6 (1.0-2.8); Alkaline Phosphatase 55 U/L (38-126); Aspartate Aminotransferase 32 IU/L (14-36); BUN Creatinine Ratio 21.9 (6-22); Bilirubin Total 0.5 mg/dL (0.2-1.3); Blood Urea Nitrogen 21 mg/dL (7-17); Calcium 9.1 mg/dL (8.4-10.2); Carbon Dioxide 25 mmol/L (22-32); Chloride 107 mmol/L (98-107); Estimated Glomerular Filt Rate > 60 mL/min (>60); Globulin 2.6 g/dL (1.7-4.1); Glucose 98 mg/dL (80-110); HEMOLYSIS < 15 (0-50); Lactate (Lactic Acid) 0.7 mmol/L (0.7-2.1); Lipase 82 U/L (23-300); PTT Partial Thromboplastin Tim 22 SECONDS (25.1-36.5); Potassium 4.4 mmol/L (3.4-5.1); Sodium 136 mmol/L (137-145); Total Protein 6.7 g/dL (6.3-8.2)
--- NOTE | 2024-06-29 13:47 | ED_ITS ---
HPI - Trauma General Chief Complaint: Trauma Stated Complaint: Fall, Ankle Deformity Time Seen by Provider: 06/29/24 12:45 Source: patient Mode of arrival: EMS History of Present Illness HPI narrative: 64-year-old woman with a history of hypertension, postmenopausal was on a ladder up to her attic lost her balance fell 8 ft landing directly on her back complaining of head pain, mid cervical pain and lower back pain. Swelling and tenderness to the foot and ankle on the right side. She is brought in by medics. She is able to speak in full sentences and declines narcotic pain medication as the vomiting in the past has been worse than the benefit from the narcotic. Standby trauma was called Related Data Home Medications Medication Instructions Recorded Confirmed alprazolam PO 05/28/24 05/28/24 Previous Rx's Medication Instructions Recorded albuterol sulfate 90 mcg/actuation 2 puff inhalation Q4-6H PRN 11/22/23 aerosol inhaler shortness of breath or wheezing #6.7 grams meloxicam 15 mg tablet See Rx Instructions .Route 11/22/23 .COMPLEX #90 tabs ondansetron 4 mg disintegrating See Rx Instructions .Route 11/22/23 tablet .COMPLEX #30 tabs paroxetine HCl 30 mg tablet See Rx Instructions .Route 11/22/23 .COMPLEX #90 tabs zolpidem 10 mg tablet 10 mg PO BEDTIME PRN sleep #90 tabs 11/22/23 Tirzepatide See Rx Instructions .Route 05/28/24 .COMPLEX #6 mL estradiol 0.0375 mg/24 hr 1 patch transdermal 2XW #24 ea 05/28/24 semiweekly transdermal patch lisinopril 10 1 tab PO DAILY #90 tabs 05/28/24 mg-hydrochlorothiazide 12.5 mg tablet oxycodone-acetaminophen 5 mg-325 See Rx Instructions .Route 05/28/24 mg tablet .COMPLEX PRN pain #60 tabs testosterone 1 pump topical DAILY #75 grams 05/28/24 trazodone 50 mg tablet 50 mg PO BEDTIME PRN insomnia #30 05/28/24 tabs Allergies Allergy/AdvReac Type Severity Reaction Status Date / Time hydrocodone [From Vicodin] AdvReac Mild N/V Verified 05/28/24 11:12 oxycodone [From Percocet] AdvReac Mild N/V Verified 05/28/24 11:12 Review of Systems Review of Systems Narrative: Pertinent positive and negative findings as per HPI Patient History Medical History (Updated 06/29/24 @ 14:46 by Eden Lainez MD) Preventative health care Hormone replacement therapy Tear meniscus knee Obesity Hyperlipidemia Pre-diabetes At high risk for cardiovascular disease Post menopausal syndrome Insomnia Asthma History of tobacco use Secondhand smoke exposure Right flank pain Asymptomatic microscopic hematuria Hematuria Perinephric cyst Acute flank pain Exposure to parasitic disease Dyspnea Preventive measure Osteoarthritis PTSD (post-traumatic stress disorder) Panic attacks Generalized anxiety disorder Dyspepsia and disorder of function of stomach Surgical History (Updated 02/08/24 @ 08:51 by GLADYS Ambrosio) Hx of laminectomy History of hysterectomy Social History Smoking Status: Former smoker Tobacco: How many years used: 33 quit status: has quit before alcohol intake: never substance use type: does not use Smoking Status: Former smoker Exam Initial Vital Signs Initial Vital Signs: Vital Signs Temperature 98.6 F 06/29/24 12:56 Pulse Rate 66 06/29/24 12:56 Respiratory Rate 12 06/29/24 12:56 Blood Pressure 140/78 06/29/24 12:56 Pulse Oximetry 100 06/29/24 12:56 Oxygen Delivery Method Room Air 06/29/24 12:56 General: Spine stabilization precautions in place, no obvious bleeding, speaking in full sentences HEENT: Moist mucous membranes, normal sclera with reactive pupils, head is atraumatic minor tenderness, to the occiput with palpation Neck: Midline cervical spine tenderness approximately C5. Respiratory: Lungs are clear to auscultation, no wheezing no rales no rhonchi. Full and symmetrical air movement, no subcutaneous air Cardiac: Regular rate and rhythm no murmurs no bruits Abdomen: Soft, nontender, Spine: Significant tenderness at T12 through L3 without obvious step-off. No tenderness to pelvic ring manipulation Skin: Warm and dry, no rashes Neurologic: Grossly neurologically intact with no obvious asymmetries or abnormalities, full sensation to lower extremities Extremities: Swelling to right ankle with tenderness over the calcaneus, no lacerations Psych: Cooperative, appropriate insight and affect Course Orders Ordered: ED Orders 06/29/24 12:50 Complete Blood Count AUTO DIFF Stat Comprehensive Metabolic Panel Stat Lactate (Lactic Acid) Stat Lipase Stat PTT Partial Thromboplastin Jerad Stat Prothrombin Time INR Stat 06/29/24 12:56 CT Trauma Chest Abdomen Pelvis Stat XR ankle RT min 3V Stat EKG-12 Lead Stat 06/29/24 12:57 CT cervical spine wo con Stat CT head/brain wo con Stat 06/29/24 12:59 Ct Foot right without con Stat Discontinued Medications Diazepam (Diazepam 10 Mg/2 Ml Syringe) 5 mg IV NOW ONE Stop: 06/29/24 13:48 Last Admin: 06/29/24 13:50 Dose: 5 mg Documented By: IMAN Ondansetron HCl (Ondansetron 4 Mg/2 Ml Inj) 4 mg IV NOW ONE Stop: 06/29/24 12:55 Last Admin: 06/29/24 13:09 Dose: 4 mg Documented By: EDWIGE Oxycodone/Acetaminophen (Oxycodone/Acetaminophen 5/325 Tablet) 1 tab PO NOW ONE Stop: 06/29/24 12:55 Last Admin: 06/29/24 13:09 Dose: 1 tab Documented By: EDWIGE Oxycodone/Acetaminophen (Oxycodone/Acetaminophen 5/325 Tablet) 1 tab PO NOW ONE Stop: 06/29/24 15:58 Last Admin: 06/29/24 16:01 Dose: 1 tab Documented By: EDWIGE Vital Signs Vital signs: Vital Signs - 8 hr 06/29/24 12:56 06/29/24 12:56 06/29/24 13:00 Temperature 98.6 F Pulse Rate 66 69 66 Respiratory Rate 12 13 20 Blood Pressure 140/78 Pulse Oximetry 100 99 98 Oxygen Delivery Method Room Air 06/29/24 13:00 06/29/24 13:30 06/29/24 14:00 Temperature Pulse Rate 86 80 Respiratory Rate 22 Blood Pressure 130/76 Pulse Oximetry 98 98 Oxygen Delivery Method 06/29/24 14:02 06/29/24 14:02 06/29/24 14:30 Temperature Pulse Rate 77 76 Respiratory Rate 22 22 Blood Pressure 119/62 Pulse Oximetry 93 97 Oxygen Delivery Method 06/29/24 15:00 06/29/24 15:30 06/29/24 16:04 Temperature 98.6 F Pulse Rate 74 75 78 Respiratory Rate 24 25 H 14 Blood Pressure 119/62 Pulse Oximetry 97 98 100 Oxygen Delivery Method Room Air MDM - Trauma Lab Data 06/29/24 12:50 06/29/24 12:50 Labs: Lab Results 06/29/24 Range/Units 12:50 WBC 9.9 (4.5-11.0) X10^3/uL RBC 4.51 (4.0-5.2) X10^6/uL Hgb 13.6 (12.0-16.0) g/dL Hct 40.7 (36-46) % MCV 90.3 (80-100) fL MCH 30.2 (26-34) PG MCHC 33.4 (30-36) % RDW 14.2 (11.6-14.8) % Plt Count 283 (150-400) X10^3/uL Neut % (Auto) 77.1 H (50-75) % Lymph % (Auto) 13.5 L (25-40) % [place] % (Auto) 6.2 (3-14) % Eos % (Auto) 2.7 (2-4) % Baso % (Auto) 0.5 (0-2) % Neut # (Auto) 7600 H (4715-5365) /uL Lymph # (Auto) 1300 (0969-6402) /uL [place] # (Auto) 600 (0-900) /uL Eos # (Auto) 300 (0-450) /uL Baso # (Auto) 0 (0-100) /uL PT 11.0 (9.4-12.5) SECONDS INR 1.0 (0.9-1.3) APTT 22 L (25.1-36.5) SECONDS Sodium 136 L (137-145) mmol/L Potassium 4.4 (3.4-5.1) mmol/L Chloride 107 (98-107) mmol/L Carbon Dioxide 25 (22-32) mmol/L BUN 21 H (7-17) mg/dL Creatinine 0.96 (0.52-1.04) mg/dL Estimated GFR > 60 (>60) mL/min BUN/Creatinine Ratio 21.9 (6-22) Glucose 98 (80-110) mg/dL Lactate 0.7 (0.7-2.1) mmol/L Calcium 9.1 (8.4-10.2) mg/dL Total Bilirubin 0.5 (0.2-1.3) mg/dL AST 32 (14-36) IU/L ALT 20 (<35) IU/L Alkaline Phosphatase 55 (38-126) U/L Total Protein 6.7 (6.3-8.2) g/dL Albumin 4.1 (3.5-5.0) g/dL Globulin 2.6 (1.7-4.1) g/dL Albumin/Globulin Ratio 1.6 (1.0-2.8) Lipase 82 (23-300) U/L Imaging Data CT chest abdomen pelvis trauma: Radiologist's Impression: PROCEDURE: CT TRAUMA CHEST ABDOMEN PELVIS INDICATIONS: fell off ladder TECHNIQUE: MDCT axial chest images were obtained with IV contrast in the arterial phase. Maximum intensity projections and multiplanar reformats were obtained. MDCT axial abdomen and pelvis images were obtained with IV contrast in the portal venous phase. Multiplanar reformats were obtained. Optional delayed phase scanning may also be obtained Advanced techniques were used to lower patient radiation exposure. COMPARISON:None. FINDINGS Image Quality: Diagnostic. Chest: Lungs and pleura: No pneumothorax or hemothorax. No pulmonary contusions or lacerations. No solid pulmonary nodule requiring follow-up. Vascular: No dissection or pseudoaneurysm. No incidental central pulmonary embolism. No hemopericardium. Mediastinum: No mediastinum hematoma. No suspicious mass or lymph nodes. No actionable thyroid nodules. Chest wall: Intact clavicles, scapula, and glenohumeral joint. No displaced rib fractures. Thoracic spine: No acute fracture or traumatic subluxation. ABDOMEN and PELVIS: Liver: No laceration or capsular hematoma. Hepatic cysts are present. Gallbladder: Unremarkable. Biliary system: Non-dilated. Pancreas: Unremarkable. Spleen: No laceration or capsular hematoma. Adrenals: No suspicious nodules. Kidneys: No contrast extravasation or hydronephrosis. No solid masses. Vessels and lymph nodes: No pathology lymph nodes by size criteria. No dissection or aneurysm. No retroperitoneal hematoma. Bowel and peritoneum: No suspicious region of mesenteric hemorrhage or hemoperitoneum. No bowel obstruction. Pelvis: Unremarkable bladder. Pelvic ring and femurs: No pelvic ring disruption. No hip fractures. Lumbar spine: There is fracture through the superior endplate of the L4 vertebral body, likely extending to the posterior vertebral body. Abdominal wall: No drainable fluid collection or hematoma. IMPRESSION: Incomplete burst fracture the L4 vertebral body. AO classification -A3. Dictated by: Monty Fontanez M.D. on 06/29/2024 at 13:53 MDM Narrative Medical decision making narrative: CC: Fall from 8 ft landing flat on her back Complicating co-morbidities: Hypertension Data collected from: patient Differential considered: Cervical spine injury, thoracic or lumbar spine injury, pelvic injury, intra-abdominal trauma, hemopneumothorax, intracranial bleeding Exam documented above, pertinent findings include: Patient is alert and appropriate with the initial GCS of 15. Minor tenderness to the occiput, tenderness mid C-spine lower thoracic/upper lumbar spine. She is moving extremities. Swelling to the right ankle and tenderness to the right calcaneus without any lacerations overriding this. Freely moving all extremities Lab Test results independently reviewed as above. Pertinent findings: CBC is unremarkable Chemistries are reassuring with normal renal function Urine has a small amount of blood no other findings Independently reviewed EKG: EKG shows sinus rhythm at a rate of 74 Imaging studies independently reviewed: CT chest abdomen pelvis does not show significant pathology in the chest, thoracic spine, no intra-abdominal concerns. She does have an incomplete f racture through the superior endplate of the L4 vertebral body, likely extending to the posterior vertebral body. CT scan of the foot shows Acute severely comminuted and displaced calcaneal fracture involving its mid to distal weight-bearing portion CT scans of the head and cervical spine show no acute fractures or intracranial hemorrhage Consultations: [facility] transfer center ED consultation with Dr. Franklyn Cabrales Treatments: Zofran, IV diazepam as pain control per patient request Discussion: 64-year-old woman history of hypertension fell 8 ft from a ladder landing on her back with an L4 unstable burst fracture with no acute spinal compression and right calcaneal fracture. No other obvious injury intracranial, intrathoracic or intra-abdominal bleeding is appreciated. Patient remained leans alert and oriented. Reviewed findings with her. Given the L4 burst fracture we will discuss care with [facility] with anticipation of transfer for further stabilization. Will arrange ALS transport ED to ED Critical Care Time Critical Care Time Critical Care Time: Yes Total Critical Care Time: 33 Attestation: Critical care time is separate from other billable procedures. There is a high probability of a significant, sudden or life-threatening deterioration that requires my full and direct attention, intervention and personal management. This critical care time includes consultation with family and other consulting doctors, review of records, and interpretation of data from labs, EKGs and imaging as well as managements of trauma Discharge Plan Departure Patient Disposition: [facility] Clinical Impression: Burst fracture of lumbar vertebra Qualifiers: Encounter type: initial encounter Fracture type: closed Qualified Code(s): S 32.001A - Stable burst fracture of unspecified lumbar vertebra, initial encounter for closed fracture Fall from ladder Qualifiers: Encounter type: initial encounter Qualified Code(s): W11.XXXA - Fall on and from ladder, initial encounter Calcaneal fracture Qualifiers: Encounter type: initial encounter Calcaneus location: unspecified portion of calcaneus Fracture type: closed Prescriptions: No Action meloxicam 15 mg tablet See Rx Instructions .ROUTE .COMPLEX Qty: 90 3RF Dose Instruction: TAKE 1/2 TO 1 (ONE-HALF TO ONE) TABLET BY MOUTH ONCE DAILY FOR JOINT PAIN Rx Instructions: TAKE 1 TABLET BY MOUTH ONCE DAILY FOR JOINT PAIN ondansetron 4 mg tablet,disintegrating See Rx Instructions .ROUTE .COMPLEX Qty: 30 1RF Rx Instructions: Take 1 tab under tongue every 6 hours for the first 2-3 days while on Tramadol to prevent n/v. albuterol sulfate 90 mcg/actuation HFA aerosol inhaler 2 puff inhalation Q4-6H PRN (Reason: shortness of breath or wheezing) Qty: 6.7 3RF paroxetine HCl 30 mg tablet See Rx Instructions .ROUTE .COMPLEX Qty: 90 3RF Dose Instruction: Take 1 tablet by mouth once daily Rx Instructions: Take 1 tablet by mouth once daily zolpidem 10 mg tablet 10 mg PO BEDTIME PRN (Reason: sleep) Qty: 90 1RF Rx Instructions: Take 1/2 to 1 tab at bedtime daily if Doxepin is not effective alprazolam PO trazodone 50 mg tablet 50 mg PO BEDTIME PRN (Reason: insomnia) Qty: 30 2RF estradiol 0.0375 mg/24 hr patch semiweekly 1 patch transdermal 2XW Qty: 24 3RF Rx Instructions: apply 1 patch for 3 days alternating with 1 patch for 4 days each week for 3 wks per 4-wk cycle lisinopril-hydrochlorothiazide 10-12.5 mg tablet 1 tab PO DAILY Qty: 90 3RF oxycodone-acetaminophen 5-325 mg tablet See Rx Instructions .ROUTE .COMPLEX PRN (Reason: pain) Qty: 60 0RF Rx Instructions: Take 1/2 to 1 tab every 8 hours as needed for pain PRN; 1st fill: [facility] can only dispense 7 days supply #21 on the 1st dispense 12/13/23 testosterone 20.25 mg/1.25 gram (1.62 %) gel in metered-dose pump 1 pump topical DAILY Qty: 75 3RF Rx Instructions: apply 1 pump amount over max area of ONE upper arm and shoulder Tirzepatide See Rx Instructions .ROUTE .COMPLEX Qty: 6 3RF Rx Instructions: 12.5mg/mL inject 5mg SQ weekly for minimum 4 weeks, increase once plateaued, doubling dose x4+ weeks between each increase; Referrals: Osmar Pacheco, [Primary Care Provider] -
[2024-06-29] MEDS: diazePAM 10 MG/2 ML SYRINGE 5 MG IV (13:50)
--- NOTE | 2024-06-29 16:05 | PC.NURSE ---
Pt states that her pain has improved. 10/11. Mason placed and pt a&ox4 at the time of transfer. Report given to transport ERINN DESHPANDE.
== END 2024-06-29 16:07 | disposition short-term general hospital (02) ==
PROVIDERS: Emergency Provider Emergency Medicine; PCP Family Medicine
DX: S32.042A Unstable burst fracture of fourth lumbar vertebra, initial encounter for closed fracture (principal); S92.001A Unspecified fracture of right calcaneus, initial encounter for closed fracture; M54.2 Cervicalgia; R51.9 Headache, unspecified; I10 Essential (primary) hypertension; W11.XXXA Fall on and from ladder, initial encounter; Z87.891 Personal history of nicotine dependence
CPT/HCPCS: 36415; 70450; 71275; 72125; 73610; 73700; 74177; 80053; 83605; 83690; 85025; 85610; 85730; 93005; 96374; 96375; 99284; 99291; G0390; J2405; J3360